=== PATIENT | male | born 1995 | race Caucasian/White ===

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

== ENCOUNTER 2017-03-08 13:15 | Outpatient (RCR) | payer MEDICAID | END 2017-03-21 | LOC: WSPT | DX: G12.9 Spinal muscular atrophy, unspecified (principal) ==

== ENCOUNTER → 2017-11-10 | Outpatient (CLI) | payer MEDICAID | LOC: COL.RAD 11:14 | DX: G12.9 Spinal muscular atrophy, unspecified (principal); Z98.1 Arthrodesis status ==

== ENCOUNTER 2017-11-11 14:56 | Outpatient (RCR) | payer MEDICAID | END 2018-02-09 | disposition home or self-care (01) | LOC: MKS.ESL.OT | DX: G12.9 Spinal muscular atrophy, unspecified (principal) ==

== ENCOUNTER 2019-03-07 18:11 | Emergency (ER) | payer MEDICAID ==
[~2019-03-07] VITALS: Ht 182.9 cm; Wt 113.6 kg
[2019-03-07 18:21] VITALS: TEMP 98.6
[2019-03-07] MEDS ORDERED: VYVANSE10 MG (19:08)
[2019-03-07] MEDS ORDERED: VIIBRYD10 MG (19:09)
[2019-03-07] MEDS ORDERED: VESICARE10 MG PO (19:10)
[2019-03-07 19:27] LABS: BASO % 0.5 % (0.0-2.0); EOS # 0.1 (0.0-0.7); EOS % 0.9 % (0-4.0); GRAN # 3.5 (1.4-6.5); GRAN % 60.1 % (42.2-75.2); HEMATOCRIT 45.2 % (42.0-52.0); HEMOGLOBIN 14.4 g/dl (13.5-18.0); LYMPH # 1.7 (1.2-3.4); LYMPH % 28.8 % (20.0-51.0); MEAN CELL VOLUME 92 fl (80.0-100.0); MEAN CORPUSCULAR HEMOGLOBIN 29 pg (27.0-31.0); MEAN CORPUSCULAR HGB CONC 32 g/dl (33.0-37.0); MEAN PLATELET VOLUME 9.4 fl (7.4-10.4); MONO # 0.6 (0.1-0.6); MONO % 9.4 % (1.7-9.3); PLATELET COUNT 333 K/mm3 (130-400); RED BLOOD COUNT 4.89 M/mm3 (4.20-5.60); REDCELL DISTRIBUTION WIDTH-CV 13.2 % (11.5-14.5)
[2019-03-07 19:49] LABS: C-REACTIVE PROTEIN 0.7 mg/dL (0.0-0.9); CALCIUM 9.5 mg/dL (8.4-10.2); CREATININE, serum 0.19 (0.66-1.25); POTASSIUM 4.1 mmol/L (3.4-5.0)
[2019-03-07 20:19] LABS: ERYTHROCYTE SEDIMENTATION RATE 15 mm/hr (0-15)
[2019-03-07] MEDS ORDERED: NEURONTIN300 MG/CAP PO (20:55)
[2019-03-07] MEDS ORDERED: FLEXERIL 1010 MG/TAB PO (20:56)
[2019-03-07 21:10] VITALS: BP 127/73; PULSE 103
== END 2019-03-07 21:10 | disposition home or self-care (01) ==
LOC: COL.ER 18:11
PROVIDERS: Emergency Medicine
DX: M54.5 Low back pain (principal)

== ENCOUNTER 2020-12-30 17:55 | Emergency (ER) | payer MEDICAID ==
[~2020-12-30] VITALS: Ht 185.4 cm; Wt 113.6 kg
[~2020-12-30 17:55] MED LIST changes: +FLEXERIL 1010 MG/TAB PO; +NEURONTIN300 MG/CAP PO; +VESICARE10 MG PO; +VIIBRYD10 MG; +VYVANSE10 MG
[2020-12-30 18:54] LABS: BASO % 0.3 % (0.0-2.0); EOS % 0.7 % (0-4.0); GRAN % 65.3 % (42.2-75.2); HEMATOCRIT 43.9 % (42.0-52.0); HEMOGLOBIN 14.2 g/dl (13.5-18.0); LYMPH # 1.6 (1.2-3.4); LYMPH % 26.1 % (20.0-51.0); MEAN CELL VOLUME 94 fl (80.0-100.0); MEAN CORPUSCULAR HEMOGLOBIN 30 pg (27.0-31.0); MEAN CORPUSCULAR HGB CONC 32 g/dl (33.0-37.0); MEAN PLATELET VOLUME 9.3 fl (7.4-10.4); MONO # 0.5 (0.1-0.6); MONO % 7.4 % (1.7-9.3); PLATELET COUNT 289 K/mm3 (130-400); RED BLOOD COUNT 4.68 M/mm3 (4.20-5.60); REDCELL DISTRIBUTION WIDTH-CV 13.7 % (11.5-14.5)
[2020-12-30 19:11] LABS: ALANINE AMINOTRANSFERASE 12 U/L (0-55); ALBUMIN 4.2 gm/dL (3.5-5.0); ALKALINE PHOSPHATASE 48 U/L (0-750); ANION GAP 12 mmol/L; AST,SGOT 14 U/L (5-34); BILIRUBIN,TOTAL 0.6 mg/dL (0.2-1.2); BLOOD UREA NITROGEN 6 mg/dL (9-21); CALCIUM 9.3 mg/dL (8.4-10.2); CARBON DIOXIDE 23 mEq/L (22-29); CHLORIDE 106 mmol/L (98-107); CREATININE, serum 0.39 mg/dL (0.72-1.25); GLUCOSE 79 mg/dL (70-99); SODIUM 141 mmol/L (136-145); TOTAL PROTEIN 7.7 gm/dL (6.2-8.1)
[2020-12-30 19:12] LABS: ACETAMINOPHEN < 1.0 ug/mL (10-30); ALCOHOL(ethanol),MEDICAL < 10 mg/dL (0-10); SALICYLATE < 5.0 mg/dL (15.0-30.0)
[2020-12-30 19:58] LABS: TRICYCLIC ANTIDEPRESS URINE NEGATIVE
--- NOTE | 2021-01-02 12:41 | NUR ---
ironworker foreman facilitated client/finance attorney meeting and court hearing for the patient. ironworker foreman collaborated with ED RN about outcome.
[2021-01-06 16:14] LABS: BASO % 0.5 % (0.0-2.0); EOS # 0.1 (0.0-0.7); EOS % 1.4 % (0-4.0); GRAN # 3.6 (1.4-6.5); GRAN % 56.1 % (42.2-75.2); HEMATOCRIT 43.1 % (42.0-52.0); HEMOGLOBIN 14.3 g/dl (13.5-18.0); LYMPH # 2.1 (1.2-3.4); LYMPH % 33.4 % (20.0-51.0); MEAN CELL VOLUME 92 fl (80.0-100.0); MEAN CORPUSCULAR HEMOGLOBIN 30 pg (27.0-31.0); MEAN CORPUSCULAR HGB CONC 33 g/dl (33.0-37.0); MEAN PLATELET VOLUME 9.5 fl (7.4-10.4); MONO # 0.5 (0.1-0.6); MONO % 8.1 % (1.7-9.3); PLATELET COUNT 284 K/mm3 (130-400); REDCELL DISTRIBUTION WIDTH-CV 13.7 % (11.5-14.5)
[2021-01-06 16:37] LABS: BILIRUBIN,TOTAL 0.4 mg/dL (0.2-1.2); CALCIUM 9.1 mg/dL (8.4-10.2); CREATININE, serum 0.37 mg/dL (0.72-1.25); TOTAL PROTEIN 7.3 gm/dL (6.2-8.1)
--- NOTE | 2021-01-07 13:39 | NUR ---
poultry farm worker contacted [facility] and gave a referral. brian Alvarez coordinator states that their physicians will not accept involuntary patients that need to cross county lines. Patient remains #6 on the non-acute list for [facility]. Worker notified patient's nurse and house superviser of the above information.
[2021-01-08 18:00] VITALS: TEMP 98
[2021-01-09 09:45] VITALS: BP 100/65; PULSE 76
== END 2021-01-09 09:45 ==
LOC: COL.ER 17:55
PROVIDERS: Nurse Practitioner; Personal Emergency Response Attendant
DX: F32.9 Major depressive disorder, single episode, unspecified (principal); R45.851 Suicidal ideations; G80.9 Cerebral palsy, unspecified; Z20.822 Contact with and (suspected) exposure to COVID-19
CPT/HCPCS: G0463

== ENCOUNTER 2021-07-17 13:21 | Outpatient (RCR) | payer MEDICAID | END 2021-08-02 | disposition home or self-care (01) | LOC: MKS.ESL.OT | DX: G12.9 Spinal muscular atrophy, unspecified (principal) ==